=== PATIENT | female | born 1935 | race Caucasian/White ===

== ENCOUNTER → 2020-12-17 | Outpatient (CLI) | payer OTHER | LOC: HYPER 11:39 | PROVIDERS: ATTEND Emergency Medicine | DX: L97.822 Non-pressure chronic ulcer of other part of left lower leg with fat layer exposed (principal); S81.802D Unspecified open wound, left lower leg, subsequent encounter; R60.0 Localized edema; E03.9 Hypothyroidism, unspecified; I87.2 Venous insufficiency (chronic) (peripheral); I10 Essential (primary) hypertension; E78.5 Hyperlipidemia, unspecified; E66.9 Obesity, unspecified; G93.2 Benign intracranial hypertension; G89.29 Other chronic pain; H40.009 Preglaucoma, unspecified, unspecified eye; I48.19 Other persistent atrial fibrillation; R26.81 Unsteadiness on feet; M81.0 Age-related osteoporosis without current pathological fracture; F41.8 Other specified anxiety disorders; F32.9 Major depressive disorder, single episode, unspecified; Z85.3 Personal history of malignant neoplasm of breast; Z79.82 Long term (current) use of aspirin; Z68.26 Body mass index [BMI] 26.0-26.9, adult; X58.XXXD Exposure to other specified factors, subsequent encounter ==